=== PATIENT | male | born 1995 | race Caucasian/White ===

== ENCOUNTER 2017-07-08 19:36 | Emergency (ER) | payer BC, OTHER ==
[2017-07-08 19:46] VITALS: BP 179/90
--- NOTE | 2017-07-08 20:13 | EDM.PDOC ---
ED HPI GENERAL MEDICAL PROBLEM - General Chief Complaint: Upper Extremity Injury/Pain Stated Complaint: SHOULDER PAIN Time Seen by Provider: 07/08/17 20:00 Source of Information: Reports: Patient History Limitations: Reports: No Limitations - History of Present Illness INITIAL COMMENTS - FREE TEXT/NARRATIVE: Patient is a 26-year-old male who presents to the ED complaining of right clavicle pain. Patient states he's had intermittent pain to the right clavicle with no precipitating factors. As of today pain to the right clavicle has grown increasingly worse to the point he can barely move his arm up and down and left to right. There's been no recent trauma to the affected area. States he has a history of clavicle fracture as a child. Again there has been no known precipitating factors contributing to the pain. Right Shoulder Pain Score (Numeric/FACES): 6 - Related Data Allergies Allergy/AdvReac Type Severity Reaction Status Date / Time Sulfa (Sulfonamide Allergy Hives Verified 03/19/15 20:18 Antibiotics) Home Meds: Home Meds . [No Known Home Meds] 03/19/15 [History] Past Medical History Musculoskeletal History: Reports: Other (See Below) Other Musculoskeletal History: right fractured clavicle - Past Surgical History HEENT Surgical History: Reports: Adenoidectomy, Tonsillectomy GI Surgical History: Reports: Appendectomy Social & Family History - Tobacco Use Smoking Status *Q: Current Every Day Smoker Years of Tobacco use: 4 Packs/Tins Daily: 0.5 - Caffeine Use Caffeine Use: Reports: Coffee - Recreational Drug Use Recreational Drug Use: No Review of Systems - Review of Systems Review Of Systems: ROS reveals no pertinent complaints other than HPI. ED EXAM, GENERAL - Physical Exam Exam: See Below Exam Limited By: No Limitations General Appearance: Alert, WD/WN, No Apparent Distress Ears: Hearing Grossly Normal Nose: Normal Inspection Throat/Mouth: Normal Voice, No Airway Compromise Neck: Normal Inspection, Supple, Non-Tender, Full Range of Motion Respiratory/Chest: No Respiratory Distress, Lungs Clear, Normal Breath Sounds, No Accessory Muscle Use Cardiovascular: Normal Peripheral Pulses, Regular Rate, Rhythm Peripheral Pulses: 2+: Radial (R) Extremities: Normal Inspection, No Pedal Edema, Normal Capillary Refill, Limited Range of Motion (right shoulder 2nd to pain to the right A/C joint. Pin point tenderness on examination to A/C joint with faint bony abnormality. No swelling or ecchymosis noted. No sensory changes. Limited exam in relation to ROM 2nd to pain. ), Other Neurological: Alert, Oriented, CN II-XII Intact, Normal Cognition, No Motor/ Sensory Deficits Psychiatric: Normal Affect, Normal Mood Skin Exam: Warm, Dry, Intact, Normal Color, No Rash Course - Vital Signs Last Recorded V/S: Last Vital Signs Temp 98.1 F 07/08/17 19:42 Pulse 95 07/08/17 19:42 Resp 20 07/08/17 19:42 BP 179/90 H 07/08/17 19:42 Pulse Ox 98 07/08/17 19:42 - Orders/Labs/Meds Orders: Active Orders 24 hr Category Date Time Status Clavicle Rt [CR] Stat Exams 07/08/17 20:06 Ordered DME for Discharge [COMM] Stat Oth 07/08/17 20:25 Ordered - Re-Assessments/Exams Free Text/Narrative Re-Assessment/Exam: Will order x-ray of the right clavicle. Unclear etiology of current complaints. Suspect related to over use injury to the A/C joint. X-ray of the right clavicle did not reveal any acute bony abnormalities. Reviewed with Dr. Winters. Final interpretation pending. Will discharge patient home with arm sling with instructions to utilize NSAIDS. Departure - Departure Time of Disposition: 20:25 Disposition: Home, Self-Care 01 Condition: Good Clinical Impression: Acromioclavicular joint pain Qualifiers: Laterality: right Qualified Code(s): M25.511 - Pain in right shoulder - Discharge Information Instructions: Acromioclavicular Separation With Rehab-SportsMed Referrals: PCP,None [Primary Care Provider] - Forms: ED Department Discharge, ED Return to Work/School Form Additional Instructions: X-ray of the right clavicle and a/c joint did not reveal any acute bony abnormalities or concerning findings at this point. Examination suggesting that you have inflammation to the a/c joint. Treatment is anti-inflammatories ibuprofen 800 mg every 8 hours with plenty of food and water. Refrain from any activities that cause worsening pain. Arm sling for the next 3 days taking off to shower, sleep, and resting. Only wear the arm sling when up and about moving. Follow-up with PCP in the next 3-5 days for reevaluation if symptoms have not drastically improved. Can also make an appt with Dr. Golden to be evaluated in 7 to 10 if no improvements with conservative therapy. Return to ED for any new or worsening symptoms. - My Orders Last 24 Hours: My Active Orders 07/08/17 20:06 Clavicle Rt [CR] Stat 07/08/17 20:25 DME for Discharge [COMM] Stat - Assessment/Plan Last 24 Hours: My Active Orders 07/08/17 20:06 Clavicle Rt [CR] Stat 07/08/17 20:25 DME for Discharge [COMM] Stat
--- NOTE | 2017-07-09 07:04 | CR ---
Right clavicle: Two views of the right clavicle were obtained. Comparison: No prior study. No fracture or other abnormality is appreciated. Impression: 1. No abnormality is seen on two-view right clavicle study. Diagnostic code #1
== END 2017-07-08 20:45 | disposition home or self-care (01) ==
LOC: JD.ED 19:36
DX: M25.511 Pain in right shoulder (principal); F17.210 Nicotine dependence, cigarettes, uncomplicated; Z88.2 Allergy status to sulfonamides
CPT/HCPCS: 73000-26-RT; 73000-RT; 99283

== ENCOUNTER 2022-03-10 19:43 | Emergency (ER) | payer BC, OTHER ==
[2022-03-10 20:29] VITALS: BP 160/102; PULSE 117
== END 2022-03-10 23:01 | disposition home or self-care (01) ==
LOC: JD.ED 19:43
DX: R06.00 Dyspnea, unspecified (principal); I10 Essential (primary) hypertension; F17.210 Nicotine dependence, cigarettes, uncomplicated; E66.9 Obesity, unspecified; Z68.42 Body mass index [BMI] 45.0-49.9, adult; Z86.16 Personal history of COVID-19; Z28.310 Unvaccinated for COVID-19; Z88.2 Allergy status to sulfonamides; Z20.822 Contact with and (suspected) exposure to COVID-19
CPT/HCPCS: 36415; 71046; 71046-26; 80053; 83605; 83880; 84484; 85025; 85379; 93005; 93010; 99284; 99285; U0002